=== PATIENT | female | born 1950 | race African-American/Black ===

== ENCOUNTER → 2017-07-12 | Outpatient (CLI) | payer MEDICARE, OTHER ==
--- NOTE | 2017-07-12 10:28 | KCIC ---
Indication: Chronic kidney disease stage III. There is asymmetry in renal size, right being smaller. The right kidney measures 8.6 x 5.5 x 4.5 cm and the left kidney measures 11.4 x 5.6 x 6.1 cm. Overall cortical thickness is normal. There may be some slight increased cortical echogenicity of the left kidney, perhaps owing to medical renal disease. No calculi are seen. No hydronephrosis is identified. The bladder is unremarkable. IMPRESSION: Asymmetry in renal size. The left kidney does show some slight increased cortical echogenicity which can be seen with medical renal disease. No other abnormality is detected. Electronically signed by: Seng Tejeda MD (07/12/2017 10:24 AM) [id number]
== END | disposition home or self-care (01) ==
LOC: KCIC US 09:51
PROVIDERS: ATTEND Internal Medicine Nephrology
DX: N18.3 Chronic kidney disease, stage 3 (moderate) (principal)
CPT/HCPCS: 76770

== ENCOUNTER → 2017-12-14 | Outpatient (CLI) | payer MEDICARE, OTHER | END | disposition home or self-care (01) | LOC: KCIC MRI 10:51 | DX: M25.551 Pain in right hip (principal) | CPT/HCPCS: 73721 ==